=== PATIENT | female | born 1970 | race Caucasian/White ===

== ENCOUNTER 2018-11-10 05:54 | Day surgery (SDC) | payer MEDICAID ==
[2018-11-10] MEDS ORDERED: CEFAZOLIN 1 GM/50 ML (PMX) 50 ML IVPB (06:30)
[2018-11-10] MEDS: SOD CHLORIDE 0.9% 1,000 ML IV (06:46)
[2018-11-10] MEDS ORDERED: BUPIVACAINE 0.5%/EPI (SDV) 30 ML INJ (07:47)
[2018-11-10] MEDS ORDERED: MIDAZOLAM 1 MG/ML 2 ML INJ (08:06)
[2018-11-10] MEDS ORDERED: CEFAZOLIN 1 GM INJ (08:06)
[2018-11-10] MEDS ORDERED: FENTAnyl 50 MCG/ML VIAL (08:06)
[2018-11-10] MEDS ORDERED: PROPOFOL 20 ML (08:06)
[2018-11-10] MEDS: BUPIVACAINE 0.5% (SDV) 30 ML INJ (08:23)
[2018-11-10] MEDS ORDERED: METOCLOPRAMIDE 10 MG INJ (08:26)
[2018-11-10] MEDS ORDERED: ONDANSETRON 4 MG INJ (08:26)
[2018-11-10] MEDS ORDERED: KETOROLAC 30 MG INJ (08:27)
[2018-11-10] MEDS ORDERED: DEXAMETHASONE 4 MG/ML 5 ML INJ (08:27)
[2018-11-10] MEDS ORDERED: HYDROmorphONE 1 MG/5 ML IV SYRINGE IV ×3 (08:30)
[2018-11-10] MEDS ORDERED: LABETALOL HCL 20MG INJ IV (08:30)
[2018-11-10] MEDS ORDERED: DIPHENHYDRAMINE 50 MG INJ IV (08:30)
[2018-11-10] MEDS ORDERED: METOCLOPRAMIDE 10 MG INJ IV (08:30)
[2018-11-10] MEDS ORDERED: OXYCODONE/ACETAMINOPHEN (5/325) TAB PO (08:30)
[2018-11-10] MEDS ORDERED: EPHEDrine 25 MG/5 ML SYG IV (08:30)
[2018-11-10] MEDS ORDERED: FENTAnyl 50 MCG/ML VIAL IV ×3 (08:30)
[2018-11-10] MEDS ORDERED: MEPERIDINE 25 MG INJ IV (08:30)
[2018-11-10] MEDS ORDERED: ONDANSETRON 4 MG INJ IV (08:30)
== END 2018-11-10 10:35 | disposition home or self-care (01) ==
LOC: SDS 05:54
DX: N60.92 Unspecified benign mammary dysplasia of left breast (principal)
CPT/HCPCS: 19120; 88307